=== PATIENT | female | born 1945 | race Caucasian/White ===

== ENCOUNTER 2022-01-02 17:59 | Emergency (ER) | payer MEDICARE ==
[~2022-01-02 17:59] MED LIST: ASPIRIN CHEWABL81 MG PO; CEFUROXIME500 MG PO; COMBIVENT0.074 GM/I INH; CRESTOR10 MG PO; DOXYCYCLINE HY100 M2 PO; DULERA 100 MCG8.8 GM INH; ELAVIL 25 MG TA25 MG PO; KLONOPIN TAB 00.5 MG PO; MIDODRINE HCL5 MG PO; NEURONTIN 300300 MG PO; PAXIL20 MG PO; PLAVIX 75 MG TA75 MG PO; PLETAL 100 MG100 MG PO; TESSALON PERLE100 MG PO
[2022-01-02 18:32] LABS: HEMOGLOBIN 11.4 gm/dl (12.3-15.3); RED BLOOD COUNT 3.72 M/UL (4.00-5.10); WHITE BLOOD COUNT 3.2 K/UL (4.5-11.0)
== END 2022-01-02 23:00 | disposition left against medical advice (07) ==
LOC: ER1 17:59
DX: J10.1 Influenza due to other identified influenza virus with other respiratory manifestations (principal); R55 Syncope and collapse; Z20.822 Contact with and (suspected) exposure to COVID-19; I10 Essential (primary) hypertension; Z88.0 Allergy status to penicillin
CPT/HCPCS: 0240U; 71045; 80053; 82550; 82553; 84484; 85025; 93005; 99283

== ENCOUNTER → 2022-04-02 | Outpatient (CLI) | payer MEDICARE | LOC: KOH-I 09:00 | DX: M79.671 Pain in right foot (principal); S92.311A Displaced fracture of first metatarsal bone, right foot, initial encounter for closed fracture; S92.321A Displaced fracture of second metatarsal bone, right foot, initial encounter for closed fracture; S92.331A Displaced fracture of third metatarsal bone, right foot, initial encounter for closed fracture; S92.341A Displaced fracture of fourth metatarsal bone, right foot, initial encounter for closed fracture; S92.211A Displaced fracture of cuboid bone of right foot, initial encounter for closed fracture | CPT/HCPCS: 73700 ==